=== PATIENT | female | born 2005 | race African-American/Black ===

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

== ENCOUNTER 2023-03-21 16:41 | Emergency (ER) | payer OTHER, SELFPAY ==
--- NOTE | ~2023-03-21 | CT_ITS ---
EXAMINATION: CT femur LT w con DATE: 03/21/2023 21:37 INDICATION: Left thigh swelling. Trauma. TECHNIQUE: Computed tomography (CT) of the left femur was performed with 100 mL Omnipaque 350 intrave nous contrast. Automated exposure control and iterative reconstruction technique were employed. The d ose-length product was 1056.43 mGy-cm. COMPARISON: None FINDINGS: Bone alignment is normal. No fracture. There is mild left hip osteoarthritis. There is mild left knee osteoarthritis. No knee joint effusion. The musculature is normal. There is subcutaneous f at stranding in the left thigh with skin thickening. In the medial left thigh, there is subcutaneous infiltrating soft tissue, likely hematoma. IMPRESSION: 1. Subcutaneous hematoma and edema in left thigh. Reviewed, dictated and finalized at location E.
[2023-03-21 17:10] VITALS: BP 141/80; PULSE 72; RESP 18; TEMP 36.8; O2SAT 100
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
[2023-03-21 21:34] LABS: Estimated CRCL calculation 126 ml/min; Estimated Glomerular Filt Rate > 60
[2023-03-21 22:30] LABS: Basophils Absolute Auto 0.1 K/mm3 (0.0-0.1); Basophils Percent Auto 0.5 % (0.2-1.2); Eosinophils Absolute Auto 0.1 K/mm3 (0-0.3); Eosinophils Percent Auto 0.7 % (0-4.4); Hemoglobin 10.6 g/dL (12.0-15.0); Immature Granulocyte Absolute 0.03 K/mm3 (0.00-0.031); Immature Granulocyte Percent A 0.3 % (0-0.5); Lymphocytes Absolute Auto 2.86 K/mm3 (0.9-3.2); Lymphocytes Percent Auto 27.2 % (18.3-44.2); Mean Corpuscular HGB Conc 30.3 g/dl (32-36); Mean Corpuscular Hemoglobin 24.3 pg (26-34); Mean Corpuscular Volume 80.1 fl (80-100); Mean Platelet Volume 11.9 fl (7.4-10.4); Monocytes Absolute Auto 0.6 K/mm3 (0.1-0.6); Neutrophils Absolute Auto 6.9 K/mm3 (1.3-6.7); Neutrophils Percent Auto 65.3 % (45.5-73.1); Platelet Count Result 204 k/mm3 (150-375); Red Blood Count 4.37 M/mm3 (4.2-5.4); Red Cell Distribution Width 15.3 % (11.5-14.5); White Blood Count 10.5 K/mm3 (4.5-10.0)
[2023-03-21 22:40] VITALS: BP 138/82; PULSE 71; RESP 18; TEMP 36.4; O2SAT 99
[2023-03-21 22:40] LABS: Alanine Aminotransferase 18 U/L (6-35); Albumin Level 3.7 g/dL (3.5-5.1); Alkaline Phosphatase 73 U/L (38-126); Anion Gap 10 mmol/L (8-16); Aspartate Amino Transferase 22 U/L (14-36); Bilirubin,Total 0.4 mg/dL (0.2-1.3); Blood Urea Nitrogen 11 mg/dL (7-17); Calcium 8.9 mg/dL (8.4-10.2); Carbon Dioxide 26 mmol/L (22-30); Chloride 102 mmol/L (98-107); Estimated CRCL calculation 143 ml/min; Estimated Glomerular Filt Rate > 60; Glucose 94 mg/dL (65-110); Potassium 4.1 mmol/L (3.4-5.0); Prothrombin Time 13.3 Seconds (11.1-14.7); Sodium 138 mmol/L (137-145)
[2023-03-21 23:46] VITALS: BP 127/85; PULSE 78; RESP 14; TEMP 36.2; O2SAT 100
== END 2023-03-21 23:48 | disposition home or self-care (01) ==
PROVIDERS: Emergency Provider Physician Assistant
DX: S70.12XA Contusion of left thigh, initial encounter (principal); V18.4XXA Pedal cycle driver injured in noncollision transport accident in traffic accident, initial encounter; Y93.55 Activity, bike riding
CPT/HCPCS: 73701; 80053; 81025; 85025; 85610; 99284; Q9967

== ENCOUNTER 2023-06-12 14:43 | Outpatient (CLI) | payer OTHER, SELFPAY ==
--- NOTE | ~2023-06-12 | US_ITS ---
US soft tissue LE LT 06/12/2023 15:21 Indication: Evaluate left thigh mass Procedure: High-resolution Limited ultrasound of the left thigh in the area of palpable concern. Comparison: CT dated 03/21/2023 Findings: There is a localized fluid collection in the left medial thigh measuring 11 x 9 x 4.5 cm wi th circumscribed margins, posterior acoustic enhancement and no internal vascularity. There are low l evel internal echoes. Impression: 1: Large localized fluid collection left medial thigh measuring up to 11 cm corresponding to hematoma seen on prior CT dated 03/21/2023, consistent with maturing hematoma/seroma. Infection unlikely in the absence of associated clinical findings. Reviewed, dictated and finalized at location L. ACCOUNTANT Impression: 1: Large localized fluid collection left medial thigh measuring up to 11 cm cor responding to hematoma seen on prior CT dated 03/21/2023, consistent with maturin g hematoma/seroma. Infection unlikely in the absence of associated clinical fin dings.
== END 2023-06-12 14:44 | disposition home or self-care (01) ==
PROVIDERS: Visit Provider Surgery
DX: T14.8XXA Other injury of unspecified body region, initial encounter (principal)
CPT/HCPCS: 76882

== ENCOUNTER 2023-08-30 10:30 | Emergency (ER) | payer MEDICAID, SELFPAY ==
[2023-08-30 10:43] VITALS: BP 130/66; PULSE 93; RESP 20; TEMP 36.3; O2SAT 100
--- NOTE | 2023-08-30 10:53 | ED.FEMALEGU ---
HPI - Female Genitourinary General Chief complaint: Vaginal Bleeding Stated complaint: WELCH/SOB/STOMACH PAIN/VAG BLEED/ Time Seen by Provider: 08/30/23 10:53 Source: patient and RN notes reviewed Mode of arrival: ambulatory Limitations: no limitations History of Present Illness HPI Narrative: 18 y/o female presented for c/o small amount of vaginal bleeding 2 days ago. She states she noticed small amount of blood on toilet tissue, but had none since then. Pt is 11 weeks gestation. Denies abdominal pain/cramping, diarrhea, constipation, or fever. ObGyn is Dr Reta Chavez ([facility]). Reports vomiting r/t . Also reports headache since yesterday. Not taking anything for symptoms. Has not contacted Obgyn. Related Data Home Medications Medication Instructions Recorded Confirmed No Home Medications 11/01/22 08/30/23 Allergies Allergy/AdvReac Type Severity Reaction Status Date / Time No Known Allergies Allergy Verified 08/30/23 10:40 Review of Systems Review of Systems: CONSTITUTIONAL: Denies body aches, fever, chills, or sweats. CARDIOVASCULAR: Denies chest pain, palpitations, or edema. RESPIRATORY: Denies cough or dyspnea. GASTROINTESTINAL: Denies abdominal pain, nausea, vomiting, or diarrhea. GENITOURINARY: denies active vaginal bleeding, dysuria, frequency, urgency, hematuria, flank pain SKIN: Denies rash, itching, or wounds. MUSCULOSKELETAL: Denies back pain or myalgia. [facility] Past Medical History Medical History No active medical problems Surgical History Surgical History Hx of appendectomy Social History Social History Smoking status: Never smoker Alcohol intake: never Substance use: never Living arrangements: dorm student housing Occupation/Education: student Gender identity (if verbalized by the patient): Female Comments At time of signature, I have reviewed and agree with nursing past medical, surgical, social and family history unless otherwise noted. Please see nursing chart for further information. There is no relevant family history pertinent to the presenting complaint Exam Narrative: GENERAL: Well-appearing ENT: Mucous membranes pink and moist. NECK: Normal AROM. Supple. CHEST: No respiratory distress. Clear to auscultation. HEART: Regular rate and rhythm. ABDOMEN: Soft, nontender, nondistended, normal active bowel sounds. No CVA tenderness SKIN: Warm, dry, no rash. NEURO: No focal deficits. Alert and oriented x3. Gait steady. PSYCH: flat affect. Course Course Emergency Course: Patient is aware of diagnosis, understands and agrees to treatment plan. Anticipatory guidance given. Patient agrees to follow-up as directed and is aware of reasons to seek care at the emergency department. Portions of this record may have been created with voice recognition software Level of Care: Express Care Visit Vital Signs Vital signs: Vital Signs Temperature 97.3 F L 08/30/23 10:43 Pulse Rate 93 08/30/23 10:43 Respiratory Rate 20 08/30/23 10:43 Blood Pressure 130/66 08/30/23 10:43 Pulse Oximetry 100 08/30/23 10:43 Temperature 97.3 F L 08/30/23 10:43 Pulse Rate 93 08/30/23 10:43 Respiratory Rate 20 08/30/23 10:43 Blood Pressure 130/66 08/30/23 10:43 Pulse Oximetry 100 08/30/23 10:43 Reviewed Transfer Transfered to: [place] Transportation: Other (private vehicle) Transfer rationale: Pt is agreeable to transfer. Requests transfer to [facility] via private vehicle. Risks of transportation reviewed with pt including injury, worsening of condition and . v/u. Report called to hospital, spoke with Dr Sharpe, accepting physician. Pt is in stable condition at time of transfer. Advised to remain NPO and go directly to the hospital.
== END 2023-08-30 11:09 | disposition short-term general hospital (02) ==
PROVIDERS: Emergency Provider Nurse Practitioner Family; PCP Obstetrics & Gynecology
DX: O20.9 Hemorrhage in early pregnancy, unspecified (principal)
CPT/HCPCS: 99212; G0463

== ENCOUNTER 2023-08-30 12:11 | Emergency (ER) | payer MEDICAID, SELFPAY ==
--- NOTE | ~2023-08-30 | US_ITS ---
Pelvic ultrasound. Clinical History: First trimester , vaginal bleeding Technique: Realtime transabdominal and transvaginal scanning of the pelvis was performed. Color flow Doppler and Doppler spectral analysis were performed. Findings: The uterus is anteverted, and contains an intrauterine gestation. [place]-rump length of 3.7 cm corresponds to an estimated gestational age of 10 weeks 4 days. heart rate is [address] nta posteriorly located.. Cervix closed. The right ovary is not visualized. No significant right ovarian or adnexal mass is seen. The left ovary measures 3.0 x 2.6 x 1.9 cm. No significant left ovarian or adnexal mass is seen. There is no evidence of free fluid in the cul de sac. Impression: Live intrauterine gestation, with estimated gestational age of 10 weeks 4 days. heart rate is 1 67 bpm. Reviewed, dictated and finalized at [facility]. CTOR OF BLOOD Impression: Live intrauterine gestation, with estimated gestational age of 10 weeks 4 days. heart rate is 167 bpm.
[2023-08-30 12:36] VITALS: BP 134/98; PULSE 81; RESP 18; TEMP 36.3; O2SAT 99
--- NOTE | 2023-08-30 14:35 | ED.PREGNANCY ---
HPI - General Chief complaint: Vaginal Bleeding Stated complaint: /vb Time Seen by Provider: 08/30/23 14:14 History of Present Illness HPI Narrative: Patient is a 18-year-old female, estimated gestational age around 10 weeks here with vaginal bleeding. She states that about 4 days ago she began having some bright read vaginal spotting. She denies passage of tissue or clot. She believes the bleeding only lasted about a day and is not currently present. She denies any associated cramping, vaginal discharge, urinary symptoms. No concern for STI. Today she decided to be seen for a headache. Notes it feels like a normal headache, no associated symptoms like numbness, weakness, light sensitivity. No trauma. She notes she has had some decreased PO intake of fluids during her first trimester due to nausea and vomiting. No sick contacts. No flu like symptoms. Nothing taken at home for her headache. Related Data Home Medications Medication Instructions Recorded Confirmed No Home Medications 11/01/22 08/30/23 Allergies Allergy/AdvReac Type Severity Reaction Status Date / Time No Known Allergies Allergy Verified 08/30/23 10:40 Review of Systems Review of Systems: All systems reviewed & are unremarkable except as noted in HPI and below PMFSH Past Medical History Medical History No active medical problems Surgical History Surgical History Hx of appendectomy Social History Social History Smoking status: Never smoker Alcohol intake: never Substance use: never Living arrangements: dorm student housing Occupation/Education: student Gender identity (if verbalized by the patient): Female Exam Narrative: GENERAL: Well-appearing, well-nourished, and in no acute distress. HEAD: Normocephalic, atraumatic. EYES: PERRLA and EOMI. ENT: Nares clear. Mucous membranes moist. NECK: Supple. CHEST: Clear to auscultation. No respiratory distress. HEART: Regular rate and rhythm. Normal peripheral pulses. ABDOMEN: Soft, nontender, nondistended. : patient deferred. EXTREMITIES: Normal range of motion. No edema. SKIN: Warm, dry, no rash. NEURO: No focal deficits. Alert and oriented x3. PSYCH: Normal mood and affect. Course Course Emergency Course: Chart review performed. Patient is a 18 year old female here with vaginal spotting. Reportedly 11 weeks . It appears she was seen at [facility] today for vaginal bleeding. OBGYN is Dr. Reta Chavez ([facility]). It appears they made multiple attempts to call her OBGYN and were unsuccessful. US was performed from triage showing live intrauterine gestation estimated gestational age of 10 weeks, 4 days with HR of 167. Patient seen evaluated, nontoxic appearing, no active bleeding or vaginal discharge. Discussed that she could have a threatened miscarriage at this time. Advised pelvic rest. We will do basic labs, blood type, hCG quantitative. Will additionally give Tylenol for headache. No neurological deficits appreciated on exam. Patient agreeable to workup and treatment plan. Lab work reviewed. CBC grossly unremarkable, CMP within normal limits, hCG 91,334. Urine negative for UTI, no white blood cells or bacteria appreciated. Blood type O+ve. No rhogam needed. Advised follow-up with PCP or early next week. Return should symptoms worsen. Take tylenol for headache. The results of pertinent diagnostic studies and exam findings were discussed. The patient?s provisional diagnosis and plan of care were discussed with the patient and present family. The patient and/or present family expressed understanding of the diagnosis and plan. The nurse was instructed to provide written instructions and appropriate follow-up information. The patient understands their need and responsibil
[2023-08-30] MEDS: ACETAMINOPHEN 325 MG TABLET 650 MG PO (15:33)
[2023-08-30 15:48] LABS: Basophils Absolute Auto 0.1 K/mm3 (0.0-0.1); Basophils Percent Auto 0.4 % (0.2-1.2); Eosinophils Absolute Auto 0.1 K/mm3 (0-0.3); Eosinophils Percent Auto 0.9 % (0-4.4); Hematocrit 36.8 % (37.0-47.0); Hemoglobin 11.4 g/dL (12.0-15.0); Immature Granulocyte Absolute 0.05 K/mm3 (0.00-0.031); Immature Granulocyte Percent A 0.4 % (0-0.5); Lymphocytes Absolute Auto 2.03 K/mm3 (0.9-3.2); Lymphocytes Percent Auto 17.6 % (18.3-44.2); Mean Corpuscular Hemoglobin 23.9 pg (26-34); Mean Corpuscular Volume 77.3 fl (80-100); Mean Platelet Volume 11.5 fl (7.4-10.4); Monocytes Absolute Auto 0.7 K/mm3 (0.1-0.6); Monocytes Percent Auto 6.3 % (2.6-8.5); Neutrophils Absolute Auto 8.6 K/mm3 (1.3-6.7); Neutrophils Percent Auto 74.4 % (45.5-73.1); Platelet Count Result 214 k/mm3 (150-375); Red Blood Count 4.76 M/mm3 (4.2-5.4); Red Cell Distribution Width 15.5 % (11.5-14.5); White Blood Count 11.6 K/mm3 (4.5-10.0)
[2023-08-30 15:54] LABS: Appearance Urine Cloudy (Clear); Bacteria Urine None Seen /hpf; Bilirubin Urine Negative (Negative); Blood Urine Negative (Negative); Color Urine Yellow (Yellow); Glucose Urine UA Negative (Negative); Ketones Urine Trace mg/dL (Negative); Leukocyte Esterase Ur Trace LEU/UL (Negative); Nitrate Urine Negative (Negative); Non Pathogenic Casts 0-2; Protein Urine Negative (Negative); RBC Urine 0-2 /hpf (0-2); Specific Grav Ur 1.034 (1.001-1.035); Squamous Epithelial Cell Urine Occasional /hpf (Few); WBC Urine 0-5 /hpf; pH Urine 6.5 (5.0-9.0)
[2023-08-30 15:59] LABS: Alanine Aminotransferase 21 U/L (6-35); Alkaline Phosphatase 60 U/L (38-126); Anion Gap 5 mmol/L (8-16); Aspartate Amino Transferase 24 U/L (14-36); Bilirubin,Total 0.3 mg/dL (0.2-1.3); Blood Urea Nitrogen 7 mg/dL (7-17); Calcium 9.6 mg/dL (8.4-10.2); Carbon Dioxide 24 mmol/L (22-30); Chloride 105 mmol/L (98-107); Estimated CRCL calculation 161 ml/min; Estimated Glomerular Filt Rate > 60; Glucose 86 mg/dL (65-110); Sodium 134 mmol/L (137-145)
[2023-08-30 16:07] VITALS: BP 138/75; PULSE 81; RESP 18; TEMP 36.6; O2SAT 100
[2023-08-30 16:15] LABS: Add Urine Microscopic? YES
== END 2023-08-30 17:31 | disposition home or self-care (01) ==
LOC: ANHED 17:09
PROVIDERS: Emergency Provider Student in an Organized Health Care Education/Training Program; PCP Obstetrics & Gynecology
DX: O20.9 Hemorrhage in early pregnancy, unspecified (principal); O26.891 Other specified pregnancy related conditions, first trimester; R51.9 Headache, unspecified; Z3A.10 10 weeks gestation of pregnancy
CPT/HCPCS: 36415; 76801; 76817; 80053; 81001; 84702; 85025; 86850; 86900; 86901; 99284; A9270